=== PATIENT | male | born 1980 | race Caucasian/White ===

== ENCOUNTER 2020-02-14 18:23 | Emergency (ER) | payer SELFPAY ==
[~2020-02-14] VITALS: Ht 177.8 cm; Wt 100.0 kg
[2020-02-14 18:45] VITALS: BP 139/60
--- NOTE | 2020-02-14 19:00 | PHYS DOC ---
Past Medical History Past Medical History: No Pertinent History Past Surgical History: No Surgical History Smoking Status: Current Every Day Smoker Alcohol Use: Occasionally Drug Use: None General Adult EDM: Chief Complaint: SORE THROAT HPI: HPI: Patient is a 40 year old male who presents to the emergency department with complaints of throat discomfort and a frequent dry cough for more than 3 months. He denies any fever, body aches, nausea, vomiting, diarrhea, abdominal pain, difficulty swallowing, ear pain, headache, chest pain, palpitations, dizziness, or ear pain. Patient denies any shortness of breath or wheezing. He denies any hematemesis or mucus production with the cough. Patient reports that he has had frequent throat clearing and nasal congestion with his symptoms. He currently denies any pain. Patient denies any alleviating or exacerbating factors. Review of Systems: Review of Systems: Constitutional: Denies fever or chills. [] Eyes: Denies change in visual acuity. [] HENT: See HPI Respiratory: Denies wheezing or shortness of breath; see HPI. [] Cardiovascular: Denies chest pain or edema. [] GI: Denies abdominal pain, nausea, vomiting, or diarrhea. [] : Denies dysuria. [] Musculoskeletal: Denies back pain or joint pain. [] Integument: Denies rash. [] Neurologic: Denies headache, focal weakness or sensory changes. [] Endocrine: Denies polyuria or polydipsia. [] Lymphatic: Denies swollen glands. [] Psychiatric: Denies depression or anxiety. [] Heart Score: Risk Factors: Risk Factors: DM, Current or recent (<one month) smoker, HTN, HLP, family history of CAD, obesity. Risk Scores: Score 0 - 3: 2.5% MACE over next 6 weeks - Discharge Home Score 4 - 6: 20.3% MACE over next 6 weeks - Admit for Clinical Observation Score 7 - 10: 72.7% MACE over next 6 weeks - Early Invasive Strategies Allergies: Allergies: Allergies Coded Allergies Type Severity Reaction Last Updated Verified No Known Drug Allergies 07/14/15 No Physical Exam: PE: Constitutional: Well developed, well nourished, no acute distress, normal appearance, HENT: Normocephalic, atraumatic, bilateral external ears normal, bilateral TMs normal, cobblestone appearance of posterior pharynx, oropharynx moist, nose congested with erythema and edema of the nasal turbinates bilaterally Eyes: PERRLA, conjunctiva normal bilaterally, no discharge. [] Neck: Normal range of motion, supple, no stridor. [] Cardiovascular:Heart rate regular rhythm Lungs & Thorax: Bilateral breath sounds clear to auscultation, Respirations even and unlabored, no retractions, no respiratory distress Skin: Warm, dry, no erythema, no rash. [] Back: No tenderness Extremities: No cyanosis, ROM intact Neurologic: Alert and oriented X 3, no focal deficits noted. [] Psychologic: Affect normal, judgement normal, mood normal. EKG: EKG: [] Radiology/Procedures: Radiology/Procedures: [] Course & Med Decision Making: Course & Med Decision Making Pertinent Labs and Imaging studies reviewed. (See chart for details) Dx: medical screening exam A medical screening exam was performed, patient was found to have no emergent medical condition. The plan of care would've included counseling about allergic rhinitis and recommendation of [id number] treatments that are available. However, the patient eloped after talking with registration. [] [] Dragon Disclaimer: Dragon Disclaimer: This electronic medical record was generated, in whole or in part, using a voice recognition dictation system. Departure Departure Impression: Primary Impression: Encounter for medical screening examination Disposition: 01 HOME, SELF-CARE (Patient eloped after speaking with registration) Condition: STABLE Referrals: NO PCP (PCP) Justicifation of Admission Dx: Justifications for Admission: Justification of Admission Dx: N/A MARIAH HOLCOMB APRN Feb 14, 2020 19:00
== END 2020-02-14 19:10 | disposition home or self-care (01) ==
LOC: ER 18:23
DX: R05 Cough (principal); R09.81 Nasal congestion
CPT/HCPCS: 99281